=== PATIENT | male | born 2000 | race African-American/Black ===

== ENCOUNTER 2020-09-20 23:57 | Emergency (ER) | payer SELFPAY ==
[~2020-09-20] VITALS: Ht 172.7 cm; Wt 82.0 kg
[2020-09-21] MEDS ORDERED: HYDROCODONE/ACETAMINOPHEN 5/325MG TABLET PO ONE (00:15)
[2020-09-21 00:26] VITALS: BP 108/58
[2020-09-21] MEDS ORDERED: BUPIVACAINE HCL/PF 0.5% (5MG/ML) 10ML INFIL ONE (00:30)
[2020-09-21] MEDS ORDERED: IBUP-2029 MT (01:28)
[2020-09-21] MEDS ORDERED: CEPH500C2 MT (01:28)
== END 2020-09-21 02:22 | disposition home or self-care (01) ==
LOC: ER 23:57
DX: S66.395A Other injury of extensor muscle, fascia and tendon of left ring finger at wrist and hand level, initial encounter (principal); S61.213A Laceration without foreign body of left middle finger without damage to nail, initial encounter; S60.417A Abrasion of left little finger, initial encounter; R03.0 Elevated blood-pressure reading, without diagnosis of hypertension; V49.49XA Driver injured in collision with other motor vehicles in traffic accident, initial encounter; Y93.89 Activity, other specified; Y92.488 Other paved roadways as the place of occurrence of the external cause
CPT/HCPCS: 29130; 73130; 99283; J3490